=== PATIENT | male | born 1960 | race African-American/Black ===

== ENCOUNTER 2021-12-21 14:23 | Inpatient (IN) | payer MEDICAID ==
[~2021-12-21] VITALS: Ht 180.3 cm; Wt 64.4 kg
[~2021-12-21 14:23] MED LIST: glipizide; metformin
[2021-12-21] MEDS ORDERED: ALBUTEROL (0.083%) 2.5MG/3ML NEB HHN SCH (15:00)
[2021-12-21 15:09] LABS: BASOPHILS % 0.8 % (0.0-2.0); EOSINOPHILS % 1.4 % (0.0-5.0); HEMATOCRIT. 43.3 % (42.0-52.0); HEMOGLOBIN. 14.3 g/dL (14.0-18.0); LYMPHOCYTES % 18.8 % (20.0-50.0); MEAN CORPUSCULAR HEMOGLOBIN 31.8 pg (28.0-32.0); MEAN CORPUSCULAR VOLUME 96.4 fL (80.0-94.0); MEAN PLATELET VOLUME 8.2 fl (7.4-10.4); MONOCYTES % 14.8 % (2.0-8.0); NEUTROPHILS % 64.2 % (40.0-76.0); PLATELET 176 x1000/uL (130-400); RED BLOOD CELL COUNT 4.49 mill/uL (4.7-6.1)
[2021-12-21 15:18] LABS: CHLORIDE 109 mEq/L (98-107)
[2021-12-21] MEDS ORDERED: FUROSEMIDE 40MG/4ML VIAL IVP ONE (16:15)
[2021-12-22 03:45] VITALS: BP 130/80
[2021-12-22] MEDS ORDERED: HYDROCODONE/ACETAMINOPHEN 5/325MG TABLET PO PRN (04:30)
[2021-12-22] MEDS ORDERED: IPRATROPIUM/ALBUTEROL 0.5-3(2.5)MG/3ML NEB HHN PRN (04:30)
[2021-12-22] MEDS ORDERED: DEXTROSE 50% WATER 50ML SYRINGE IV PRN (04:30)
[2021-12-22 05:19] LABS: *AMPHETAMINES SCREEN URINE NEGATIVE (NEGATIVE); *BARBITURATES SCREEN URINE NEGATIVE (NEGATIVE)
[2021-12-22 05:20] LABS: *BENZODIAZEPINES SCREEN URINE NEGATIVE (NEGATIVE); *COCAINE SCREEN URINE PRESUMTIVE POSITIVE (NEGATIVE); CANNABINOID URINE SCREEN NEGATIVE (NEGATIVE); METHADONE URINE SCREEN NEGATIVE (NEGATIVE); OPIATES URINE SCREEN NEGATIVE (NEGATIVE); PHENCYCLIDINE URINE SCREEN NEGATIVE (NEGATIVE)
[2021-12-22] MEDS ORDERED: PNEUMOCOCCAL 23-VAL P-SAC VAC 0.5 ML IM ONE (06:00)
[2021-12-22] MEDS: INSULIN LISPRO 100 UNITS/ML SUBCUT SCH ×2 (06:28→12:02)
[2021-12-22] MEDS: BLOOD SUGAR DIAGNOSTIC STRIP TEST SCH ×2 (06:28→12:02)
[2021-12-22] MEDS: PANTOPRAZOLE 40MG DR TABLET PO SCH (06:38)
[2021-12-22] MEDS ORDERED: TAMS-11 MT (06:56)
[2021-12-22] MEDS ORDERED: BACL-141 MT (06:56)
[2021-12-22] MEDS ORDERED: NICO-645 TP (06:56)
[2021-12-22] MEDS ORDERED: COR6 MT (06:56)
[2021-12-22] MEDS ORDERED: ATOR20TA65 MT (06:56)
[2021-12-22] MEDS ORDERED: APIX2.5T MT (06:56)
[2021-12-22] MEDS ORDERED: SPIR25TA MT (06:56)
[2021-12-22] MEDS ORDERED: FLUT12AE7 INH (06:56)
[2021-12-22] MEDS ORDERED: AMLO10TA80 MT (06:56)
[2021-12-22] MEDS ORDERED: ASPI-1497 MT (06:56)
[2021-12-22] MEDS ORDERED: LISI20TA31 MT (06:56)
[2021-12-22] MEDS ORDERED: PROM5SYR MT (06:56)
[2021-12-22] MEDS ORDERED: ONDA4TAB5 PO (06:56)
[2021-12-22] MEDS ORDERED: FURO40TA5 MT (06:56)
[2021-12-22 08:00] VITALS: BP 124/79
[2021-12-22] MEDS: LISINOPRIL 10MG TABLET PO SCH (09:29)
[2021-12-22] MEDS: CARVEDILOL 6.25 MG TABLET PO SCH ×2 (09:30→21:02)
[2021-12-22] MEDS: SPIRONOLACTONE 25MG TABLET PO SCH (09:30)
[2021-12-22] MEDS: APIXABAN 5 MG TABLET PO SCH ×2 (09:30→18:35)
[2021-12-22 11:44] LABS: BASOPHILS % 0.8 % (0.0-2.0); EOSINOPHILS % 1.1 % (0.0-5.0); HEMATOCRIT. 40.3 % (42.0-52.0); HEMOGLOBIN. 13.4 g/dL (14.0-18.0); LYMPHOCYTES % 20.8 % (20.0-50.0); MEAN CORPUSCULAR HEMOGLOBIN 32.1 pg (28.0-32.0); MEAN CORPUSCULAR VOLUME 96.6 fL (80.0-94.0); MEAN PLATELET VOLUME 8.3 fl (7.4-10.4); MONOCYTES % 12.7 % (2.0-8.0); NEUTROPHILS % 64.6 % (40.0-76.0); PLATELET 164 x1000/uL (130-400); RED BLOOD CELL COUNT 4.18 mill/uL (4.7-6.1); RED CELL DISTRIBUTION WIDTH 14.7 % (11.6-14.6)
[2021-12-22 12:00] VITALS: BP 108/83
[2021-12-22 12:02] LABS: CHLORIDE 107 mEq/L (98-107)
[2021-12-22 12:09] LABS: LDL CHOLESTEROL 81 mg/dL (5-100)
[2021-12-22 12:10] LABS: HDL CHOLESTEROL 30 mg/dL (40-59)
[2021-12-22] MEDS ORDERED: ACETAMINOPHEN 650MG SUPP PR PRN (15:00)
[2021-12-22] MEDS ORDERED: NALOXONE HCL 0.4MG/ML VIAL IV PRN (15:15)
[2021-12-22] MEDS: ACETAMINOPHEN 325MG TABLET PO PRN (15:29)
[2021-12-22 16:00] VITALS: BP 113/70
[2021-12-22] MEDS ORDERED: ONDANSETRON HCL 4MG/2ML INJ IV PRN (16:15)
[2021-12-22 17:26] LABS: BG BASE EXCESS 0.1 mmol/L (-2.0-2.0); BG CARBOXYHEMOGLOBIN 0.9 % (0.5-1.5); BG DEOXYHEMOGLOBIN 15.6 % (0.0-5.0); BG FRACTION INSPIRED OXYGEN 21; BG HCO3 ACT 24.2 mmol/L (22.0-26.0); BG METHEMOGLOBIN 0.2 % (0.0-1.5); BG OXYGEN SATURATION 84.2 % (92.0-98.5); BG OXYHEMOGLOBIN 83.3 % (94.0-97.0); BG PCO2 37.4 mmHg (35.0-45.0); BG PH 7.428 (7.350-7.450); BG PO2 49.5 mmHg (75.0-100.0); BG SAMPLE SITE RIGHT BRACHIAL; BG TOTAL HEMOGLOBIN 14.5 g/dL (12.0-18.0); BG VENT MODE ROOM AIR
[2021-12-22] MEDS ORDERED: LEVOFLOXACIN 750MG PREMIX 150 ML IV NR (18:30)
[2021-12-22] MEDS: FUROSEMIDE 40MG/4ML VIAL IVP SCH (18:35)
[2021-12-22] MEDS: METHYLPREDNISOLONE SOD SUCC 40 MG/ML VIAL IV SCH (18:35)
[2021-12-22 20:00] VITALS: BP 122/78
[2021-12-22] MEDS: IPRATROPIUM/ALBUTEROL 0.5-3(2.5)MG/3ML NEB HHN SCH (20:55)
[2021-12-22] MEDS ORDERED: IOHEXOL-350 100 ML BOTTLE ONE (21:19)
[2021-12-23] VITALS: BP 128/87
[2021-12-23] MEDS: IPRATROPIUM/ALBUTEROL 0.5-3(2.5)MG/3ML NEB HHN SCH ×4 (00:30→21:06)
[2021-12-23] MEDS: METHYLPREDNISOLONE SOD SUCC 40 MG/ML VIAL IV SCH ×3 (00:42→17:07)
[2021-12-23 04:00] VITALS: BP 131/87
[2021-12-23] MEDS: PANTOPRAZOLE 40MG DR TABLET PO SCH (06:17)
[2021-12-23 06:34] LABS: BASOPHILS % 0.2 % (0.0-2.0); HEMATOCRIT. 41.6 % (42.0-52.0); LYMPHOCYTES % 10.4 % (20.0-50.0); MEAN CORPUSCULAR HEMOGLOBIN 32.1 pg (28.0-32.0); MEAN CORPUSCULAR VOLUME 95.1 fL (80.0-94.0); MEAN PLATELET VOLUME 8.4 fl (7.4-10.4); MONOCYTES % 2.1 % (2.0-8.0); NEUTROPHILS % 87.3 % (40.0-76.0); PLATELET 172 x1000/uL (130-400); RED BLOOD CELL COUNT 4.37 mill/uL (4.7-6.1); RED CELL DISTRIBUTION WIDTH 14.8 % (11.6-14.6)
[2021-12-23 06:35] LABS: CHLORIDE 104 mEq/L (98-107)
[2021-12-23 08:00] VITALS: BP 149/97
[2021-12-23] MEDS: FUROSEMIDE 40MG/4ML VIAL IVP SCH ×2 (08:31→17:08)
[2021-12-23] MEDS: APIXABAN 5 MG TABLET PO SCH ×2 (08:32→17:07)
[2021-12-23] MEDS: LISINOPRIL 10MG TABLET PO SCH ×3 (08:32→20:23)
[2021-12-23] MEDS: SPIRONOLACTONE 25MG TABLET PO SCH (08:32)
[2021-12-23] MEDS: CARVEDILOL 6.25 MG TABLET PO SCH (08:32)
[2021-12-23] MEDS: LEVOFLOXACIN 500MG PREMIX 100 ML IV SCH (11:36)
[2021-12-23 12:00] VITALS: BP 142/85
[2021-12-23] MEDS: ASPIRIN 81MG TABLET PO SCH (15:41)
[2021-12-23 16:00] VITALS: BP 138/87
[2021-12-23] MEDS: DILTIAZEM HCL 30MG TABLET PO SCH (17:07)
[2021-12-23] MEDS: NITROGLYCERIN 0.1MG/HR PATCH TOP SCH (17:08)
[2021-12-23 20:00] VITALS: BP 107/74
[2021-12-24] VITALS: BP 118/83
[2021-12-24] MEDS: IPRATROPIUM/ALBUTEROL 0.5-3(2.5)MG/3ML NEB HHN SCH ×5 (00:25→21:47)
[2021-12-24] MEDS: DILTIAZEM HCL 30MG TABLET PO SCH ×4 (00:31→17:40)
[2021-12-24] MEDS: METHYLPREDNISOLONE SOD SUCC 40 MG/ML VIAL IV SCH ×3 (00:31→17:32)
[2021-12-24] MEDS: ACETAMINOPHEN 325MG TABLET PO PRN (00:31)
[2021-12-24 04:00] VITALS: BP 122/77
[2021-12-24 07:29] LABS: CHLORIDE 100 mEq/L (98-107)
[2021-12-24 07:35] LABS: HEMATOCRIT. 43.1 % (42.0-52.0); HEMOGLOBIN. 14.5 g/dL (14.0-18.0); MEAN CORPUSCULAR VOLUME 95.3 fL (80.0-94.0); MEAN PLATELET VOLUME 8.7 fl (7.4-10.4); PLATELET 184 x1000/uL (130-400); RED BLOOD CELL COUNT 4.53 mill/uL (4.7-6.1); RED CELL DISTRIBUTION WIDTH 14.7 % (11.6-14.6)
[2021-12-24 08:00] VITALS: BP 126/81
[2021-12-24] MEDS: FAMOTIDINE 20MG TABLET PO SCH ×2 (08:26→21:04)
[2021-12-24] MEDS: LISINOPRIL 10MG TABLET PO SCH ×2 (08:27→21:05)
[2021-12-24] MEDS: ASPIRIN 81MG TABLET PO SCH (08:27)
[2021-12-24] MEDS: SPIRONOLACTONE 25MG TABLET PO SCH (08:27)
[2021-12-24] MEDS: APIXABAN 5 MG TABLET PO SCH ×2 (08:27→17:40)
[2021-12-24] MEDS: NITROGLYCERIN 0.1MG/HR PATCH TOP SCH (08:29)
[2021-12-24] MEDS: FUROSEMIDE 40MG/4ML VIAL IVP SCH ×2 (09:13→17:33)
[2021-12-24] MEDS: LEVOFLOXACIN 500MG PREMIX 100 ML IV SCH (11:30)
[2021-12-24 12:00] VITALS: BP 119/72
[2021-12-24 14:16] LABS: PLATELET ESTIMATE NORMAL
[2021-12-24] MEDS: SILDENAFIL CITRATE 20MG TABLET PO SCH ×2 (15:56→21:04)
[2021-12-24 16:00] VITALS: BP 115/70
[2021-12-24 20:00] VITALS: BP 110/73
[2021-12-25] VITALS: BP 108/54
[2021-12-25 04:00] VITALS: BP 110/66
[2021-12-25] MEDS: SILDENAFIL CITRATE 20MG TABLET PO SCH ×3 (05:46→20:44)
[2021-12-25] MEDS: METHYLPREDNISOLONE SOD SUCC 40 MG/ML VIAL IV SCH ×2 (05:46→17:39)
[2021-12-25] MEDS: DILTIAZEM HCL 30MG TABLET PO SCH ×4 (05:47→17:22)
[2021-12-25] MEDS: SPIRONOLACTONE 25MG TABLET PO SCH (09:00)
[2021-12-25] MEDS: LISINOPRIL 10MG TABLET PO SCH ×2 (09:00→20:44)
[2021-12-25] MEDS: ASPIRIN 81MG TABLET PO SCH (09:25)
[2021-12-25] MEDS: FAMOTIDINE 20MG TABLET PO SCH ×2 (09:25→20:44)
[2021-12-25] MEDS: FUROSEMIDE 40MG/4ML VIAL IVP SCH ×2 (09:25→17:39)
[2021-12-25] MEDS: APIXABAN 5 MG TABLET PO SCH ×2 (09:25→17:39)
[2021-12-25] MEDS: NITROGLYCERIN 0.1MG/HR PATCH TOP SCH (09:25)
[2021-12-25] MEDS: IPRATROPIUM/ALBUTEROL 0.5-3(2.5)MG/3ML NEB HHN SCH ×4 (09:33→20:13)
[2021-12-25 09:51] LABS: HEMATOCRIT. 42.5 % (42.0-52.0); HEMOGLOBIN. 14.6 g/dL (14.0-18.0); MEAN CORPUSCULAR HEMOGLOBIN 32.7 pg (28.0-32.0); MEAN CORPUSCULAR VOLUME 95.2 fL (80.0-94.0); PLATELET 185 x1000/uL (130-400); RED BLOOD CELL COUNT 4.46 mill/uL (4.7-6.1); RED CELL DISTRIBUTION WIDTH 14.8 % (11.6-14.6)
[2021-12-25 09:57] LABS: CHLORIDE 99 mEq/L (98-107)
[2021-12-25] MEDS: LEVOFLOXACIN 500MG PREMIX 100 ML IV SCH (11:48)
[2021-12-25 12:00] VITALS: BP 97/78
[2021-12-25 15:48] LABS: PLATELET ESTIMATE NORMAL
[2021-12-25 15:52] VITALS: BP 106/69
[2021-12-25] MEDS: ACETAMINOPHEN 325MG TABLET PO PRN (18:48)
[2021-12-25 20:00] VITALS: BP 124/74
[2021-12-26] VITALS: BP 114/59
[2021-12-26] MEDS: IPRATROPIUM/ALBUTEROL 0.5-3(2.5)MG/3ML NEB HHN SCH ×4 (00:55→21:12)
[2021-12-26] MEDS: DILTIAZEM HCL 30MG TABLET PO SCH ×5 (02:00→23:45)
[2021-12-26 04:00] VITALS: BP 107/61
[2021-12-26] MEDS: SILDENAFIL CITRATE 20MG TABLET PO SCH ×3 (06:46→22:07)
[2021-12-26 08:00] VITALS: BP 115/68
[2021-12-26] MEDS: FAMOTIDINE 20MG TABLET PO SCH ×2 (08:40→22:07)
[2021-12-26] MEDS: ASPIRIN 81MG TABLET PO SCH (08:40)
[2021-12-26] MEDS: APIXABAN 5 MG TABLET PO SCH ×2 (08:40→17:11)
[2021-12-26] MEDS: LISINOPRIL 10MG TABLET PO SCH ×2 (08:40→21:00)
[2021-12-26] MEDS: SPIRONOLACTONE 25MG TABLET PO SCH (08:40)
[2021-12-26] MEDS: NITROGLYCERIN 0.1MG/HR PATCH TOP SCH (08:41)
[2021-12-26] MEDS: FUROSEMIDE 40MG/4ML VIAL IVP SCH ×2 (08:44→17:11)
[2021-12-26 11:53] VITALS: BP 113/59
[2021-12-26] MEDS: LEVOFLOXACIN 500MG TABLET PO SCH (12:02)
[2021-12-26 16:00] VITALS: BP 112/70
[2021-12-26] MEDS: METHYLPREDNISOLONE SOD SUCC 40 MG/ML VIAL IV SCH (17:11)
[2021-12-26 20:00] VITALS: BP 107/76
[2021-12-27] VITALS: BP 114/61
[2021-12-27 04:00] VITALS: BP 105/79
[2021-12-27] MEDS: METHYLPREDNISOLONE SOD SUCC 40 MG/ML VIAL IV SCH (04:13)
[2021-12-27] MEDS: DILTIAZEM HCL 30MG TABLET PO SCH ×3 (05:15→17:00)
[2021-12-27] MEDS: SILDENAFIL CITRATE 20MG TABLET PO SCH ×3 (05:48→21:34)
[2021-12-27 08:00] VITALS: BP 120/84
[2021-12-27] MEDS: ACETAMINOPHEN 325MG TABLET PO PRN ×2 (08:40→15:05)
[2021-12-27] MEDS: ASPIRIN 81MG TABLET PO SCH (08:40)
[2021-12-27] MEDS: FAMOTIDINE 20MG TABLET PO SCH ×2 (08:40→21:33)
[2021-12-27] MEDS: SPIRONOLACTONE 25MG TABLET PO SCH (08:41)
[2021-12-27] MEDS: LISINOPRIL 10MG TABLET PO SCH ×2 (08:41→21:33)
[2021-12-27] MEDS: NITROGLYCERIN 0.1MG/HR PATCH TOP SCH (08:42)
[2021-12-27] MEDS: APIXABAN 5 MG TABLET PO SCH ×2 (08:42→17:00)
[2021-12-27] MEDS: FUROSEMIDE 40MG/4ML VIAL IVP SCH (08:47)
[2021-12-27] MEDS: IPRATROPIUM/ALBUTEROL 0.5-3(2.5)MG/3ML NEB HHN SCH ×4 (09:27→21:00)
[2021-12-27] MEDS: LEVOFLOXACIN 500MG TABLET PO SCH (12:01)
[2021-12-27 12:11] VITALS: BP 108/69
[2021-12-27 13:40] LABS: MEAN CORPUSCULAR HEMOGLOBIN 31.7 pg (28.0-32.0); MEAN CORPUSCULAR VOLUME 94.8 fL (80.0-94.0); PLATELET 245 x1000/uL (130-400); RED BLOOD CELL COUNT 5.34 mill/uL (4.7-6.1); RED CELL DISTRIBUTION WIDTH 14.8 % (11.6-14.6)
[2021-12-27 13:52] LABS: HEMATOCRIT. 50.6 % (42.0-52.0); HEMOGLOBIN. 16.9 g/dL (14.0-18.0)
[2021-12-27 14:29] LABS: CHLORIDE 94 mEq/L (98-107)
[2021-12-27 15:56] VITALS: BP 116/73
[2021-12-27] MEDS: FUROSEMIDE 40MG TABLET PO SCH (17:00)
[2021-12-27 18:49] LABS: PLATELET ESTIMATE NORMAL
[2021-12-27 20:00] VITALS: BP 129/87
[2021-12-28 04:00] VITALS: BP 105/70
[2021-12-28] MEDS: DILTIAZEM HCL 30MG TABLET PO SCH ×4 (05:03→17:45)
[2021-12-28] MEDS: SILDENAFIL CITRATE 20MG TABLET PO SCH ×2 (06:40→15:18)
[2021-12-28] MEDS: ACETAMINOPHEN 325MG TABLET PO PRN ×2 (06:44→13:28)
[2021-12-28 07:14] LABS: HEMATOCRIT. 48.8 % (42.0-52.0); HEMOGLOBIN. 16.8 g/dL (14.0-18.0); MEAN CORPUSCULAR HEMOGLOBIN 32.7 pg (28.0-32.0); MEAN PLATELET VOLUME 8.3 fl (7.4-10.4); PLATELET 237 x1000/uL (130-400); RED BLOOD CELL COUNT 5.14 mill/uL (4.7-6.1); RED CELL DISTRIBUTION WIDTH 14.4 % (11.6-14.6)
[2021-12-28 07:26] LABS: BG BASE EXCESS 8.8 mmol/L (-2.0-2.0); BG CARBOXYHEMOGLOBIN 0.3 % (0.5-1.5); BG DEOXYHEMOGLOBIN 1.6 % (0.0-5.0); BG HCO3 ACT 34.6 mmol/L (22.0-26.0); BG METHEMOGLOBIN 0.5 % (0.0-1.5); BG OXYGEN SATURATION 98.4 % (92.0-98.5); BG OXYHEMOGLOBIN 97.6 % (94.0-97.0); BG PCO2 49.8 mmHg (35.0-45.0); BG PO2 127.6 mmHg (75.0-100.0); BG SAMPLE SITE RIGHT BRACHIAL; BG TOTAL HEMOGLOBIN 18.8 g/dL (12.0-18.0); BG VENT MODE NASAL CANNULA
[2021-12-28 07:31] LABS: CHLORIDE 92 mEq/L (98-107)
[2021-12-28 08:07] VITALS: BP 111/78
[2021-12-28] MEDS: FAMOTIDINE 20MG TABLET PO SCH (08:20)
[2021-12-28] MEDS: SPIRONOLACTONE 25MG TABLET PO SCH (08:21)
[2021-12-28] MEDS: ASPIRIN 81MG TABLET PO SCH (08:23)
[2021-12-28] MEDS: APIXABAN 5 MG TABLET PO SCH ×2 (08:23→16:28)
[2021-12-28] MEDS: FUROSEMIDE 40MG TABLET PO SCH ×2 (08:24→16:27)
[2021-12-28] MEDS: LISINOPRIL 10MG TABLET PO SCH (08:24)
[2021-12-28] MEDS: NITROGLYCERIN 0.1MG/HR PATCH TOP SCH (08:26)
[2021-12-28] MEDS: IPRATROPIUM/ALBUTEROL 0.5-3(2.5)MG/3ML NEB HHN SCH ×3 (08:29→17:00)
[2021-12-28] MEDS ORDERED: METHYLPREDNISOLONE SOD SUCC 40 MG/ML VIAL IV SCH (09:00)
[2021-12-28 11:54] VITALS: BP 115/69
[2021-12-28 12:09] LABS: PLATELET ESTIMATE NORMAL
[2021-12-28 15:36] VITALS: BP 121/86
[2021-12-28] MEDS ORDERED: SPIR25TA MT (15:38)
[2021-12-28] MEDS ORDERED: ATOR20TA65 MT (15:38)
[2021-12-28] MEDS ORDERED: FURO40TA5 MT (15:38)
[2021-12-28] MEDS ORDERED: P20 MT (15:38)
[2021-12-28] MEDS ORDERED: DILT30TA38 MT (15:38)
[2021-12-28] MEDS ORDERED: FLUT12AE7 INH (15:38)
[2021-12-28] MEDS ORDERED: IPRA3AMP9 NEB (15:38)
[2021-12-28] MEDS ORDERED: ASPI-1497 MT (15:38)
[2021-12-28] MEDS ORDERED: APIX5TAB MT (15:38)
[2021-12-28] MEDS ORDERED: SILD20TA MT (15:40)
[2021-12-28] MEDS ORDERED: CALCIUM CARBONATE 500MG TABLET CHEW PO PRN (15:45)
[2021-12-28] MEDS ORDERED: LOSA25TA3 MT (15:59)
[2021-12-28 16:46] VITALS: BP 121/86
== END 2021-12-28 18:51 | disposition home health service (06) | DRG 133 ==
LOC: ER 14:23 → MICUSO 21:08 → EDBEDREQ 21:30 → EDBEDREQTM 21:30 → 7EST 12-22 02:06
PROVIDERS: ADMIT Internal Medicine; ATTEND Internal Medicine
DX: J96.01 Acute respiratory failure with hypoxia (principal); I27.20 Pulmonary hypertension, unspecified; I31.3 Pericardial effusion (noninflammatory); J18.9 Pneumonia, unspecified organism; I42.9 Cardiomyopathy, unspecified; I48.20 Chronic atrial fibrillation, unspecified; J44.1 Chronic obstructive pulmonary disease with (acute) exacerbation; I11.0 Hypertensive heart disease with heart failure; F10.10 Alcohol abuse, uncomplicated; I50.9 Heart failure, unspecified; K82.8 Other specified diseases of gallbladder; Z20.822 Contact with and (suspected) exposure to COVID-19; D64.9 Anemia, unspecified; F14.10 Cocaine abuse, uncomplicated; F17.210 Nicotine dependence, cigarettes, uncomplicated; I08.1 Rheumatic disorders of both mitral and tricuspid valves; F32.A Depression, unspecified; I25.10 Atherosclerotic heart disease of native coronary artery without angina pectoris; I48.91 Unspecified atrial fibrillation; Z79.01 Long term (current) use of anticoagulants; Z91.19 Patient's noncompliance with other medical treatment and regimen; Y92.89 Other specified places as the place of occurrence of the external cause; I25.2 Old myocardial infarction; Z79.899 Other long term (current) drug therapy; Z82.49 Family history of ischemic heart disease and other diseases of the circulatory system; Z71.51 Drug abuse counseling and surveillance of drug abuser; J44.0 Chronic obstructive pulmonary disease with (acute) lower respiratory infection
CPT/HCPCS: 36415; 36600; 71045; 71275; 76705; 80048; 80053; 80061; 80076; 80305; 82375; 82805; 82962; 83036; 83735; 83880; 84484; 85025; 85379; 87426; 90732; 93005; 93306; 93970; 94640; 94664; 97116; 97162; 99285; J1940; J1956; J2920; Q9967